=== PATIENT | female | born 1990 | race Caucasian/White ===

== ENCOUNTER 2017-03-06 04:23 | Emergency (ER) | payer OTHER ==
[~2017-03-06] VITALS: Ht 5.1 cm; Wt 80.0 kg
[~2017-03-06 04:23] MED LIST: CLIN1CAP6 PO; DIPH50CA PO
[2017-03-06 04:25] VITALS: BP 136/79; PULSE 94; RESP 16; TEMP 97.8; O2SAT 100
[2017-03-06] MEDS ORDERED: KETOROLAC TROMETHAMINE 30 MG/ML (IVP) VIAL IV PUSH ONE (05:30)
[2017-03-06] MEDS ORDERED: CLINDAMYCIN INJ 900 MG in SODIUM CHLORIDE 0.9% INJ 100 ML IV ONE (05:30)
--- NOTE | 2017-03-06 05:45 | PD ---
HPI . Cellulitis Chief Complaint: Skin Problem Time Seen by Provider: 05:17 Travel History International Travel<30 days: No Contact w/Intl Traveler<30days: No Traveled to known affect area: No History of Present Illness HPI Patient presents with a chief complaint of cellulitis on her left calf. She first noticed symptoms 26 hours prior to presentation. She has been marking the outer edge of the erythema for the last 12 hours. It was initially 5 cm in diameter. 5 hours later it was 8. 4 hours after that, it was 14. She has now developed some associated lymphangitis. No fever. It is painful. Pain is rated at 8/10. Pain is exacerbated by walking and palpation. No noted relieving factor. The patient reports a positive previous similar history. Her last episode was in May. She states that she has always been treated with clindamycin when she has had this. She states that this is the third time that she has had it. PFSH Past Medical History Cancer: No Cardiovascular Problems: No Endocrine: No Genitourinary: No Musculoskeletal: Yes (sciatica) Neurologic: Yes Psychiatric: No Reproductive: No Respiratory: No Migraines: Yes ?: Not LMP: 02/25/17 : 0 Past Surgical History Oral Surgery: Yes (tonsilectomy) Tonsillectomy: Yes Other Surgery: Yes Social History Alcohol Use: Yes (RARE) Tobacco Use: No Substance Use: No Allergies-Medications (Allergen,Severity, Reaction): Coded Allergies: acetaminophen (Unverified Adverse Reaction, Mild, Nausea/Vomiting, 03/06/17 ) Reported Meds & Prescriptions Reported Meds & Active Scripts Active No Active Prescriptions or Reported Medications Review of Systems Except as stated in HPI: all other systems reviewed are Neg General / Constitutional: No: Fever, Chills Skin: Positive Change in Pigmentation Hematologic/Lymphatic: Positive: Other (lymphangitis) Physical Exam Narrative GENERAL: Awake and alert and in no acute distress. SKIN: Approximately 15 cm diameter area of erythema to the left proximal calf with associated lymphangitis approximately half way up the thigh. There is no fluctuance. HEAD: Atraumatic. Normocephalic. EYES: Pupils equal and round. NECK: Trachea midline. CARDIOVASCULAR: Regular rate and rhythm. RESPIRATORY: No accessory muscle use. MUSCULOSKELETAL: No obvious deformities. No edema. NEUROLOGICAL: Awake and alert. No obvious cranial nerve deficits. Motor grossly within normal limits. Normal speech. PSYCHIATRIC: Appropriate mood and affect; insight and judgment normal. Data Data Last Documented VS Vital Signs Date Time Temp Pulse Resp B/P Pulse Ox O2 Delivery O2 Flow Rate FiO2 03/06/17 04:25 97.8 94 16 136/79 100 Orders Iv Access Insert/Monitor (03/06/17 05:18) Clindamycin Inj (Cleocin Inj) (03/06/17 05:30) Ketorolac Inj (Toradol Inj) (03/06/17 05:30) Basic Metabolic Panel (Bmp) (03/06/17 05:45) Complete Blood Count With Diff (03/06/17 05:45) Blood Culture (03/06/17 05:45) Labs Laboratory Tests Test 03/06/17 06:00 White Blood Count 16.6 TH/MM3 Red Blood Count 4.32 MIL/MM3 Hemoglobin 12.4 GM/DL Hematocrit 37.0 % Mean Corpuscular Volume 85.7 FL Mean Corpuscular Hemoglobin 28.8 PG Mean Corpuscular Hemoglobin 33.6 % Concent Red Cell Distribution Width 12.9 % Platelet Count 258 TH/MM3 Mean Platelet Volume 8.0 FL Neutrophils (%) (Auto) 63.9 % Lymphocytes (%) (Auto) 25.8 % Monocytes (%) (Auto) 8.3 % Eosinophils (%) (Auto) 1.6 % Basophils (%) (Auto) 0.4 % Neutrophils # (Auto) 10.6 TH/MM3 Lymphocytes # (Auto) 4.3 TH/MM3 Monocytes # (Auto) 1.4 TH/MM3 Eosinophils # (Auto) 0.3 TH/MM3 Basophils # (Auto) 0.1 TH/MM3 CBC Comment DIFF FINAL Differential Comment [facility] Medical Decision Making Medical Screen Exam Complete: Yes Emergency Medical Condition: Yes Differential Diagnosis My differential diagnosis includes but is not limited to localized wound infection, cellulitis, abscess Narrative Course Patient presents for the treatment of cellulitis in the left calf. I have ordered IV clindamycin. Morphine for pain. CBC and blood cultures are pending. CBC Diagram 03/06/17 06:00 I have discussed disposition with the patient and her mother. She feels comfortable with treatment at home. She does express concern about recurrent episodes of cellulitis. She states that she has never been treated with Bactroban in her nares. So, in addition to clindamycin, she will be given a prescription for Bactroban. Sepsis Criteria SIRS Criteria (2 or more): WBC > 12314, < 4000 or > 10% bands Diagnosis Primary Impression: Cellulitis of left lower extremity without foot Patient Instructions: Cellulitis (DC), General Instructions Scripts Hydrocodone-Acetaminophen ([place])5-325 mg Tab1 Tab PO Q4H PRN (PAIN) #12 TAB Ref 0 Prov:Kourtney Anthony MD 03/06/17 Mupirocin Nasal Oint (Bactroban Nasal Oint)2% Oint1 Applic EACH NARE BID 5 Days Ref 0 For 5 days. Prov:Kourtney Anthony MD 03/06/17 Clindamycin 300 Mg Arp907 Mg PO Q6H 10 Days Ref 0 Prov:Kourtney Anthony MD 03/06/17 Disposition: 01 DISCHARGE HOME Condition: Stable Kourtney Anthony MD Mar 06, 2017 05:44
[2017-03-06 06:30] LABS: AUTOMATED NEUTROPHIL # 10.6 TH/MM3 (1.8-7.7); BASOPHIL # 0.1 TH/MM3 (0-0.2); BASOPHIL % 0.4 % (0.0-2.0); EOSINOPHIL # 0.3 TH/MM3 (0-0.4); EOSINOPHIL % 1.6 % (0.0-4.0); HEMO FLAGS DIFF FINAL; LYMPH % 25.8 % (9.0-44.0); LYMPHOCYTE # 4.3 TH/MM3 (1.0-4.8); MEAN CELL VOLUME 85.7 FL (80.0-100.0); MEAN CORPUSCULAR HEMOGLOBIN 28.8 PG (27.0-34.0); MEAN CORPUSCULAR HGB CONC 33.6 % (32.0-36.0); MONO % 8.3 % (0.0-8.0); NEUT % 63.9 % (16.0-70.0); PLATELET COUNT 258 TH/MM3 (150-450); RED BLOOD COUNT 4.32 MIL/MM3 (4.00-5.30); RED CELL DISTRIBUTION WIDTH 12.9 % (11.6-17.2); WHITE BLOOD COUNT 16.6 TH/MM3 (4.0-11.0)
[2017-03-06] MEDS ORDERED: NORC5TAB PO (06:42)
[2017-03-06] MEDS ORDERED: CLIN1CAP6 PO (06:42)
[2017-03-06] MEDS ORDERED: BACTOIN EACH NARE (06:42)
== END 2017-03-06 06:57 | disposition home or self-care (01) ==
LOC: NEPC 04:23
DX: L03.116 Cellulitis of left lower limb (principal)
CPT/HCPCS: 85025; 87040; 96361; 96374; 99284; J1885